=== PATIENT | female | born 1980 | race Caucasian/White ===

== ENCOUNTER 2018-05-25 11:29 | Emergency (ER) | payer BC, OTHER ==
--- NOTE | 2018-05-25 12:06 | EDPHY ---
H & P Stated Complaint: ruq abd pain since saturday afternoon Time Seen by Provider: 05/25/18 11:50 HPI/ROS: CHIEF COMPLAINT: Abdominal pain HISTORY OF PRESENT ILLNESS: This is a 38-year-old female, 8 and half months following a normal and , who presents with 2 days of right upper quadrant abdominal pain. She describes it as a "spasming" sensation that occurs every 10-20 minutes. She cannot identify any factors that seem to bring on this pain. Eating does not seem related to the occurrence of the pain. She is also aware of some sensitivity on the surface of her skin in the right upper quadrant. She has had an ache in her right lower back for the past month which she thought was musculoskeletal. She denies fever, vomiting, diarrhea, dysuria, hematuria, urgency or frequency. She is breast-feeding. REVIEW OF SYSTEMS: A ten point review of systems was performed and is negative with the exception of the items mentioned in the HPI. Past medical history: Negative Past surgical history: Negative ocial history: Visiting from [place]. She is with 1 child. No tobacco use. General Appearance: Alert. Vital signs reviewed. Blood pressure 121/88, all else normal. Eyes: Pupils equal and round, no conjunctival injection, no discharge. Anicteric. ENT, Mouth: Mucous membranes are moist, no oropharyngeal erythema or edema. Neck: No lymphadenopathy, supple. Respiratory: Lungs are clear to auscultation; no wheezes, rales, or rhonchi. Cardiovascular: Regular rate and rhythm; no murmur, rub, or gallop. Gastrointestinal: Abdomen is soft with mild tenderness in the right upper quadrant, no guarding, no masses or organomegaly, bowel sounds normal. Skin: Warm and dry, no rashes on exposed skin, normal color. No vesicles seen in the area of her discomfort. Back: Nontender to palpation over the thoracolumbar spine. No CVAT. Extremities: No lower extremity edema, no calf tenderness or swelling. Neurological: Alert and oriented. Moving all four extremities easily and equally. Psychiatric: Normal affect. - Personal History LMP (Females 10-55): Over 28 Days Ago Current Tetanus Diphtheria and Acellular Pertussis (TDAP): Yes - Medical/Surgical History Hx Asthma: No Hx Chronic Respiratory Disease: No Hx Diabetes: No Hx Cardiac Disease: No Hx Renal Disease: No Hx Cirrhosis: No Hx Alcoholism: No Hx HIV/AIDS: No Hx Splenectomy or Spleen Trauma: No Other PMH: denies - Social History Smoking Status: Never smoked Constitutional: Initial Vital Signs Temperature (C) 36.6 C 05/25/18 11:34 Heart Rate 74 05/25/18 11:34 Respiratory Rate 16 05/25/18 11:34 Blood Pressure 121/88 H 05/25/18 11:34 O2 Sat (%) 96 05/25/18 11:34 O2 Delivery Mode Room Air Allergies/Adverse Reactions: No Known Allergies Allergy (Verified 05/25/18 11:34) Home Medications: Medication Instructions Recorded NK [No Known Home Meds] 05/25/18 Medical Decision Making ED Course/Re-evaluation: Right upper quadrant abdominal pain. I have reviewed her CBC, chemistries, liver functions, and lipase and they are all within normal limits. There is nothing to support a diagnosis of cholecystitis or pancreatitis. She does not have fever or an elevated white blood cell count and I do not suspect an intra- abdominal infection. Urinalysis does not show any signs of infection. I do not see overt signs of shingles although portions of her story are concerning for shingles. I discussed this with her and told her what to watch out for. At this point in time I am comfortable with her returning home, to watch and wait. We reviewed all of the danger signs that should prompt her to be reexamined. She understands that the etiology of her abdominal pain remains unknown. Differential Diagnosis: Abdominal pain including but not limited to appendicitis, cholecystitis, pancreatitis, gastritis, shingles and urinary tract infection. - Data Points Laboratory Results: Laboratory Results 05/25/18 11:45 05/25/18 11:45 Departure - Departure Disposition: Home, Routine, Self-Care Clinical Impression: Abdominal pain Qualifiers: Abdominal location: right upper quadrant Qualified Code(s): R10.11 - Right upper quadrant pain Condition: Good Instructions: Acute Abdominal Pain (ED) Additional Instructions: Return if you have any new or concerning symptoms such as fever, vomiting, persistent diarrhea, or worsening pain. As we discussed, watch for any rash that might indicate shingles. As you know, the cause of your pain remains unknown. However, I have not found a surgical or life-threatening problem. Referrals: NONE *PRIMARY CARE P,. [Primary Care Provider] - As per Instructions
[2018-05-25 12:19] LABS: PLATELET COUNT 282 10^3/uL (150-400)
[2018-05-25 13:26] VITALS: BP 118/75
== END 2018-05-25 13:26 | disposition home or self-care (01) ==
DX: R10.11 Right upper quadrant pain (principal)